=== PATIENT | male | born 1995 | race American Indian/Alaskan Native ===

== ENCOUNTER 2019-03-17 23:21 | Emergency (ER) | payer BC, OTHER ==
[2019-03-17 23:28] VITALS: BP 148/77
--- NOTE | 2019-03-17 23:47 | EDM.PDOC ---
ED HPI GENERAL MEDICAL PROBLEM - General Stated Complaint: CHEST PAIN Time Seen by Provider: 03/17/19 23:38 Source of Information: Reports: Patient History Limitations: Reports: No Limitations - History of Present Illness INITIAL COMMENTS - FREE TEXT/NARRATIVE: This 23 yo male patient reports to the ED with chest pain that started 1 hour ago. The patient reports his symptoms started as sharp pains in the middle of his chest. The patient reports he has been worried about his girlfriend moving to [place] with his child. The patient reports he has not eaten since Saturday and has not been able to sleep since that day either. The patient did contact the [facility] [place] today and has an appointment for tomorrow at noon. Onset Date: 03/17/19 Onset Time: 22:00 Duration: Constant, Improving Location: Reports: Chest Quality: Reports: Ache, Sharp Severity: Moderate Improves with: Reports: None Worsens with: Reports: None Context: Reports: Other Associated Symptoms: Reports: No Other Symptoms Mid-Sternal Chest Pain Score (Numeric/FACES): 4 - Related Data Allergies Allergy/AdvReac Type Severity Reaction Status Date / Time amoxicillin [Amoxicillin] AdvReac Mild Rash Verified 03/17/19 23:27 Home Meds: Home Meds . [No Known Home Meds] 04/02/14 [History] Past Medical History - Past Health History Medical/Surgical History: Denies Medical/Surgical History Respiratory History: Reports: Asthma Endocrine/Metabolic History: Reports: Obesity/BMI 30+ Social & Family History - Tobacco Use Smoking Status *Q: Never Smoker Second Hand Smoke Exposure: No - Recreational Drug Use Recreational Drug Use: No ED ROS GENERAL - Review of Systems Review Of Systems: ROS reveals no pertinent complaints other than HPI. ED EXAM, GENERAL - Physical Exam Exam: See Below Exam Limited By: No Limitations General Appearance: Alert, WD/WN, Moderate Distress, Obese Eye Exam: Bilateral Eye: EOMI, Normal Inspection, PERRL Ears: Normal External Exam, Normal Canal, Hearing Grossly Normal, Normal TMs Nose: Normal Inspection, Normal Mucosa, No Blood Throat/Mouth: Normal Inspection, Normal Lips, Normal Teeth, Normal Gums, Normal Oropharynx, Normal Voice, No Airway Compromise Head: Atraumatic, Normocephalic Neck: Normal Inspection, Supple, Non-Tender, Full Range of Motion Respiratory/Chest: No Respiratory Distress, Lungs Clear, Normal Breath Sounds, No Accessory Muscle Use, Chest Non-Tender Cardiovascular: Normal Peripheral Pulses, Regular Rate, Rhythm, No Edema, No Gallop, No JVD, No Murmur, No Rub GI/Abdominal: Normal Bowel Sounds, Soft, Non-Tender, No Organomegaly, No Distention, No Abnormal Bruit, No Mass (Male) Exam: Deferred Rectal (Males) Exam: Deferred Back Exam: Normal Inspection, Full Range of Motion, NT Extremities: Normal Inspection, Normal Range of Motion, Non-Tender, Normal Capillary Refill, No Pedal Edema Neurological: Alert, Oriented, CN II-XII Intact, Normal Cognition, Normal Gait, Normal Reflexes, No Motor/Sensory Deficits Psychiatric: Depressed Mood, Flat Affect Skin Exam: Warm, Dry, Intact, Normal Color, No Rash Lymphatic: No Adenopathy Course - Vital Signs Last Recorded V/S: Last Vital Signs Temp 36.4 C 03/17/19 23:24 Pulse 101 H 03/17/19 23:24 Resp 20 03/17/19 23:24 BP 148/77 H 03/17/19 23:24 Pulse Ox 100 03/17/19 23:24 - Orders/Labs/Meds Orders: Active Orders 24 hr Category Date Time Status EKG Documentation Completion [RC] URGENT Care 03/17/19 23:26 Ordered Chest 1V Frontal [CR] Urgent Exams 03/17/19 23:26 Ordered Labs: Laboratory Tests 03/17/19 03/17/19 03/17/19 Range/Units 23:38 23:38 23:38 WBC 14.5 H (5.0-10.0) 10^3/uL RBC 5.16 (4.6-6.2) 10^6/uL Hgb 14.2 (14.0-18.0) g/dL Hct 41.3 (40.0-54.0) % MCV 80.0 (80-100) fL MCH 27.5 (27.0-34.0) pg MCHC 34.4 (33.0-35.0) g/dL Plt Count 398 (150-450) 10^3/uL Neut % (Auto) 76.0 H (42.2-75.2) % Lymph % (Auto) 14.4 L (20.5-50.1) % [place] % (Auto) 8.8 H (2-8) % Eos % (Auto) 0.5 L (1.0-3.0) % Baso % (Auto) 0.3 (0.0-1.0) % Sodium 137 (135-145) mmol/L Potassium 3.8 (3.6-5.0) mmol/L Chloride 101 (101-111) mmol/L Carbon Dioxide 26.0 (21.0-31.0) mmol/L Anion Gap 13.8 BUN 13 (7-18) mg/dL Creatinine 0.7 (0.6-1.3) mg/dL Est Cr Clr Drug Dosing 172.36 mL/min Estimated GFR (MDRD) > 60 BUN/Creatinine Ratio 18.57 Glucose 97 (74-105) mg/dL Calcium 9.1 (8.4-10.2) mg/dl Total Bilirubin 1.1 H (0.2-1.0) mg/dL AST 19 (10-42) IU/L ALT 28 (10-60) IU/L Alkaline Phosphatase 71 (42-121) IU/L Troponin I < 0.02 (0.00-0.02) ng/ml Total Protein 8.3 H (6.7-8.2) g/dl Albumin 4.4 (3.2-5.5) g/dl Globulin 3.9 Albumin/Globulin Ratio 1.13 Salicylates < 4 mg/dL Acetaminophen < 10 ug/mL Ethyl Alcohol < 5 mg/dL Meds: Medications Discontinued Medications Generic Name Dose Route Start Last Admin Trade Name Freq PRN Reason Stop Dose Admin Lorazepam 0.5 mg 03/18/19 00:12 Ativan PO 03/18/19 00:13 ONETIME ONE Departure - Departure Time of Disposition: 00:14 Disposition: Home, Self-Care 01 Condition: Fair Clinical Impression: Nonspecific chest pain, Panic attack Instructions: Nonspecific Chest Pain, [id number], Panic Attack, [id number]-[id number] Forms: ED Department Discharge Care Plan Goals: The patient and his mother were advised of the examination, lab, EKG and x-ray results during the visit. The patient was given a oral dose of Ativan while in the ED. The patient was encouraged to follow-up with the [facility] tomorrow as scheduled. If the patient has any additional symptoms or concerns, the patient should either return to the emergency department or visit his primary care facility. - My Orders Last 24 Hours: My Active Orders 03/17/19 23:26 EKG Documentation Completion [RC] URGENT Chest 1V Frontal [CR] Urgent - Assessment/Plan Last 24 Hours: My Active Orders 03/17/19 23:26 EKG Documentation Completion [RC] URGENT Chest 1V Frontal [CR] Urgent
[2019-03-18 00:05] LABS: ANION GAP 13.8; CHLORIDE,CL 101 mmol/L (101-111); SODIUM,NA 137 mmol/L (135-145)
[2019-03-18 00:06] LABS: ACETAMINOPHEN < 10 ug/mL
[2019-03-18] MEDS ORDERED: LORazepam 0.5 MG Tab PO ONE (00:12)
== END 2019-03-18 00:20 | disposition home or self-care (01) ==
LOC: DL.ED 23:21
DX: R07.89 Other chest pain (principal); F41.0 Panic disorder [episodic paroxysmal anxiety]; E66.9 Obesity, unspecified; Z68.30 Body mass index [BMI] 30.0-30.9, adult; Z88.1 Allergy status to other antibiotic agents
CPT/HCPCS: 36415; 71045; 80053; 80320; 80329; 84484; 85025; 93005; 99285; A9270; G0480

== ENCOUNTER 2020-10-21 20:33 | Emergency (ER) | payer BC, OTHER ==
[2020-10-21 20:53] VITALS: BP 158/94; PULSE 109
--- NOTE | 2020-10-21 21:27 | EDM.PDOC ---
ED HPI GENERAL MEDICAL PROBLEM - General Chief Complaint: Abdominal Pain Stated Complaint: RIGHT SIDE OF ABDOMINAL PAIN Time Seen by Provider: 10/21/20 21:08 Source of Information: Reports: Patient, RN, RN Notes Reviewed, Significant Other History Limitations: Reports: No Limitations - History of Present Illness INITIAL COMMENTS - FREE TEXT/NARRATIVE: Patient presents to the ED via personal vehicle with complaints of RUQ abdominal pain. The patient states the pain began early this morning and has progressively worsened in this time. He notes the pain waxes and wanes but is the worst following a cough or sneeze. The patient states he has experienced similar pain with previous URIs, but felt the pain became too great about one hour prior to presentation following a "...big sneeze." He states the pain is localized to the right upper quadrant and characterizes it as sharp in nature. He denies fever, shaking chills, palpitations, vomiting, constipation, diarrhea, dysuria, or hematuria. He does attest to dry cough, post-nasal drip, sore throat, and nausea when he experiences the abdominal pain. He denies a history of COVID and has not received any COVID vaccinations. The patient states his last meal was [employer], shortly before the pain became too great. Right Upper Abdomen Pain Score (Numeric/FACES): 8 - Related Data Allergies Allergy/AdvReac Type Severity Reaction Status Date / Time amoxicillin [Amoxicillin] AdvReac Mild Rash Verified 10/21/20 20:46 Home Meds: Home Meds . [No Known Home Meds] 04/02/14 [History] Past Medical History - Past Health History Medical/Surgical History: Denies Medical/Surgical History Respiratory History: Reports: Asthma Endocrine/Metabolic History: Reports: Obesity/BMI 30+ Social & Family History - Tobacco Use Tobacco Use Status *Q: Never Tobacco User Second Hand Smoke Exposure: No - Caffeine Use Caffeine Use: Reports: Coffee, Energy Drinks, Soda - Recreational Drug Use Recreational Drug Use: No ED ROS GENERAL - Review of Systems Review Of Systems: Comprehensive ROS is negative, except as noted in HPI. ED EXAM, GI/ABD - Physical Exam Exam: See Below Exam Limited By: No Limitations General Appearance: Alert, No Apparent Distress Eyes: Bilateral: Normal Appearance, EOMI Nose: Clear Rhinorrhea Throat/Mouth: Normal Inspection, Normal Voice, No Airway Compromise Head: Atraumatic, Normocephalic Neck: Normal Inspection, Supple, Non-Tender, Full Range of Motion Respiratory/Chest: Lungs Clear, No Accessory Muscle Use, Chest Non-Tender, Decreased Breath Sounds Cardiovascular: Normal Peripheral Pulses, Regular Rate, Rhythm, No Edema, No Gallop, No JVD, No Murmur GI/Abdominal Exam: Normal Bowel Sounds, Soft, Non-Tender (No tenderness to palpation of the abdomen; Patient verbalized pain with coughing during examination), No Distention, No Abnormal Bruit, No Mass, Pelvis Stable. No: Guarding, Rigid, Rebound (Male) Exam: Deferred Rectal (Males) Exam: Deferred Back Exam: Normal Inspection, Full Range of Motion Extremities: Normal Inspection, Normal Range of Motion, Non-Tender, Normal Capillary Refill, No Pedal Edema Neurological: Alert, Oriented, CN II-XII Intact, Normal Cognition, Normal Gait, No Motor/Sensory Deficits Psychiatric: Normal Affect, Normal Mood Skin Exam: Warm, Dry, Intact, Normal Color, No Rash Course - Vital Signs Last Recorded V/S: Last Vital Signs Temp 97.3 F 10/21/20 20:47 Pulse 109 H 10/21/20 20:47 Resp 16 10/21/20 20:47 BP 158/94 H 10/21/20 20:47 Pulse Ox 99 10/21/20 20:47 - Orders/Labs/Meds Labs: Laboratory Tests 10/21/20 10/21/20 10/21/20 Range/Units 20:44 21:49 21:49 WBC 10.7 H (5.0-10.0) 10^3/uL RBC 5.29 (4.6-6.2) 10^6/uL Hgb 14.3 (14.0-18.0) g/dL Hct 43.1 (40.0-54.0) % MCV 81.5 (80-100) fL MCH 27.0 (27.0-34.0) pg MCHC 33.2 (33.0-35.0) g/dL Plt Count 416 (150-450) 10^3/uL Neut % (Auto) 70.1 (42.2-75.2) % Lymph % (Auto) 19.6 L (20.5-50.1) % [place] % (Auto) 6.7 (2-8) % Eos % (Auto) 2.9 (1.0-3.0) % Baso % (Auto) 0.7 (0.0-1.0) % Sodium 140 (136-145) mmol/L Potassium 4.0 (3.5-5.1) mmol/L Chloride 102 (98-107) mmol/L Carbon Dioxide 28 (21-32) mmol/L Anion Gap 14.0 H (7-13) mEq/L BUN 13 (7-18) mg/dL Creatinine 0.85 (0.70-1.30) mg/dL Est Cr Clr Drug Dosing 140.75 mL/min Estimated GFR (MDRD) > 60 BUN/Creatinine Ratio 15.3 (No establ ref range) Glucose 183 H (70-99) mg/dL Lactic Acid (0.4-2.0) mmol/L Calcium 8.5 (8.5-10.1) mg/dL Total Bilirubin 0.3 (0.2-1.0) mg/dL AST 23 (15-37) U/L ALT 60 (16-63) U/L Alkaline Phosphatase 92 (46-116) U/L C-Reactive Protein 3.9 H (0.0-0.9) mg/dL Total Protein 7.9 (6.4-8.2) g/dL Albumin 3.7 (3.4-5.0) g/dL Globulin 4.2 Albumin/Globulin Ratio 0.9 Amylase (25-115) U/L Lipase (73-393) U/L Ethyl Alcohol < 3 (0) mg/dL SARS-CoV-2 RNA (LESLI) Negative (NEGATIVE) 10/21/20 10/21/20 Range/Units 21:49 21:49 WBC (5.0-10.0) 10^3/uL RBC (4.6-6.2) 10^6/uL Hgb (14.0-18.0) g/dL Hct (40.0-54.0) % MCV (80-100) fL MCH (27.0-34.0) pg MCHC (33.0-35.0) g/dL Plt Count (150-450) 10^3/uL Neut % (Auto) (42.2-75.2) % Lymph % (Auto) (20.5-50.1) % [place] % (Auto) (2-8) % Eos % (Auto) (1.0-3.0) % Baso % (Auto) (0.0-1.0) % Sodium (136-145) mmol/L Potassium (3.5-5.1) mmol/L Chloride (98-107) mmol/L Carbon Dioxide (21-32) mmol/L Anion Gap (7-13) mEq/L BUN (7-18) mg/dL Creatinine (0.70-1.30) mg/dL Est Cr Clr Drug Dosing mL/min Estimated GFR (MDRD) BUN/Creatinine Ratio (No establ ref range) Glucose (70-99) mg/dL Lactic Acid 1.4 (0.4-2.0) mmol/L Calcium (8.5-10.1) mg/dL Total Bilirubin (0.2-1.0) mg/dL AST (15-37) U/L ALT (16-63) U/L Alkaline Phosphatase (46-116) U/L C-Reactive Protein (0.0-0.9) mg/dL Total Protein (6.4-8.2) g/dL Albumin (3.4-5.0) g/dL Globulin Albumin/Globulin Ratio Amylase 24 L (25-115) U/L Lipase 91 (73-393) U/L Ethyl Alcohol (0) mg/dL SARS-CoV-2 RNA (LESLI) (NEGATIVE) - Radiology Interpretation Free Text/Narrative:: [facility] Final Radiology Report Call: [phone] assistance Online chat: [email or web address] Name: RACHEL IQBAL Age: 24Years M Date: 10/21/2020 SSN: -- : 1995 Study: CR CHEST 2V Requesting Physician: Candie Gray Images: 2 Addl Studies: Provided Clinical History: Right rib pain with cough Contrast: Contrast Medium: Contrast Amount: Contrast Method: CONFIDENTIALITY STATEMENT This report is intended only for use by the referring physician, and only in acc ordance with law. If you received this in error, call [phone]. Page 1 of 1 PROCEDURE INFORMATION: Exam: XR Chest Exam date and time: 10/21/2020 10:50 PM Age: 24 years old Clinical indication: Cough; Additional info: Right rib pain with cough TECHNIQUE: Imaging protocol: XR of the chest. Views: 2 views. COMPARISON: CR Chest 1V Frontal 03/17/2019 11:33 PM FINDINGS: Lungs: Unremarkable. No consolidation. Pleural spaces: Unremarkable. No pleural effusion. No pneumothorax. Heart/Mediastinum: Unremarkable. No cardiomegaly. Bones/joints: Unremarkable. IMPRESSION: No acute findings. Thank you for allowing us to participate in the care of your patient. Dictated and Authenticated by: Leo Ferris MD 10/21/2020 11:23 PM Central Time ([place] & [place]) [facility] Final Radiology Report Call: [phone] assistance Online chat: [email or web address] Name: RACHEL IQBAL Age: 24Years M Date: 10/21/2020 SSN: -- : [id number] Study: CR ABDOMEN 2V AP FLAT UPRIGHT Requesting Physician: Candie Gray Images: 4 Addl Studies: Provided Clinical History: RUQ pain with cough Contrast: Contrast Medium: Contrast Amount: Contrast Method: CONFIDENTIALITY STATEMENT This report is intended only for use by the referring physician, and only in accordance with law. If you received this in error, call [phone]. Page 1 of 1 PROCEDURE INFORMATION: Exam: XR Abdomen Exam date and time: 10/21/2020 10:55 PM Age: 24 years old Clinical indication: Other: Slight wbc and crp elevation; Additional info: Ruq pain with cough TECHNIQUE: Imaging protocol: XR of the abdomen. Views: 2 Views. Upright and supine views. COMPARISON: No relevant prior studies available. FINDINGS: Gastrointestinal tract: Normal. No bowel dilation. Intraperitoneal space: Normal. No free air. Bones/joints: Unremarkable for age. IMPRESSION: No acute findings. Thank you for allowing us to participate in the care of your patient. Dictated and Authenticated by: Leo Ferris MD 10/21/2020 11:23 PM Central Time ([place] & [place]) - Re-Assessments/Exams Free Text/Narrative Re-Assessment/Exam: 10/21/20 Xray chest unremarkable for acute processes; no rib fracture or consolidation. Xray of abdomen unremarkable for acute processes; large volume of stool appreciated in the colon. COVID and Influenza negative. CBC unremarkable for acute processes; no evidence of infection or anemia. CMP appropriate; kidney function, liver function, and electrolytes are normal. Amylase and Lipase WNL. Slight CRP elevation noted. Findings of examination, lab work, and imaging reviewed with patient. Discussed etiology of constipation vs pleurisy r/t URI for RUQ pain. Discussed supportive cares as well as red flag signs and symptoms which would warrant reevaluation. Patient verbalized understanding and agreement with the plan of care. Departure - Departure Time of Disposition: 23:26 Disposition: Home, Self-Care 01 Condition: Good Clinical Impression: Pleurisy, Hyperglycemia URI (upper respiratory infection) Qualifiers: URI type: unspecified viral URI Qualified Code(s): J06.9 - Acute upper respiratory infection, unspecified Constipation Qualifiers: Constipation type: unspecified constipation type Qualified Code(s): K59.00 - Constipation, unspecified - Discharge Information *PRESCRIPTION DRUG MONITORING PROGRAM REVIEWED*: Not Applicable *COPY OF PRESCRIPTION DRUG MONITORING REPORT IN PATIENT TINO: Not Applicable Instructions: Constipation, Adult, Upper Respiratory Infection, Adult, [id number], Pleurisy, [id number] Forms: ED Department Discharge Additional Instructions: 1.) You may take MiraLAX to help alleviate symptoms of constipation as this may be attributing to the pain in you abdomen with coughing. 2.) Continue with supportive cares for your upper respiratory infection. 3.) Drink plenty of water to stay hydrated. 4.) Increase your dietary fiber intake, including fruits, vegetables, and whole grains. 5.) Follow up with your primary care provider regarding today's visit, including your elevated blood sugar level. Sepsis Event Note (ED) - Evaluation Sepsis Screening Result: No Definite Risk
[2020-10-21 22:31] LABS: CHLORIDE,CL 102 mmol/L (98-107); SODIUM,NA 140 mmol/L (136-145)
--- NOTE | 2020-10-21 23:23 | CR ---
PROCEDURE INFORMATION: Exam: XR Chest Exam date and time: 10/21/2020 10:50 PM Age: 24 years old Clinical indication: Cough; Additional info: Right rib pain with cough TECHNIQUE: Imaging protocol: XR of the chest. Views: 2 views. COMPARISON: CR Chest 1V Frontal 03/17/2019 11:33 PM FINDINGS: Lungs: Unremarkable. No consolidation. Pleural spaces: Unremarkable. No pleural effusion. No pneumothorax. Heart/Mediastinum: Unremarkable. No cardiomegaly. Bones/joints: Unremarkable. IMPRESSION: No acute findings.
--- NOTE | 2020-10-21 23:24 | CR ---
PROCEDURE INFORMATION: Exam: XR Abdomen Exam date and time: 10/21/2020 10:55 PM Age: 24 years old Clinical indication: Other: Slight wbc and crp elevation; Additional info: Ruq pain with cough TECHNIQUE: Imaging protocol: XR of the abdomen. Views: 2 Views. Upright and supine views. COMPARISON: No relevant prior studies available. FINDINGS: Gastrointestinal tract: Normal. No bowel dilation. Intraperitoneal space: Normal. No free air. Bones/joints: Unremarkable for age. IMPRESSION: No acute findings.
== END 2020-10-21 23:34 | disposition home or self-care (01) ==
LOC: DL.ED 20:33
DX: K59.00 Constipation, unspecified (principal); J06.9 Acute upper respiratory infection, unspecified; R09.1 Pleurisy; R73.9 Hyperglycemia, unspecified; J45.909 Unspecified asthma, uncomplicated; E66.9 Obesity, unspecified; Z88.0 Allergy status to penicillin; Z20.822 Contact with and (suspected) exposure to COVID-19
CPT/HCPCS: 36415; 71046; 74019; 80053; 80307; 82150; 83605; 83690; 85025; 86140; 99284; 99284-25; U0002

== ENCOUNTER 2022-06-15 15:38 | Emergency (ER) | payer OTHER ==
[2022-06-15] MEDS ORDERED: Sodium Chloride 0.9% 10 ML Syringe FLUSH PRN (15:40)
[2022-06-15 16:48] LABS: ANION GAP 14.1 mEq/L (7-13); CHLORIDE,CL 96 mmol/L (98-107); SODIUM,NA 133 mmol/L (136-145)
[2022-06-15 16:57] LABS: ESTIMATED GFR 123 mL/min (>=60)
[2022-06-15] MEDS ORDERED: Insulin Regular, Human 100 Units/ML 3 ML Vial SUBCUT ONE (16:59)
[2022-06-15] MEDS ORDERED: Insulin Regular, Human 100 Units/ML 3 ML Vial IV ONE (16:59)
[2022-06-15 17:42] VITALS: BP 142/109; PULSE 107
== END 2022-06-15 18:21 | disposition home or self-care (01) ==
LOC: DL.ED 15:38
DX: U07.1 COVID-19 (principal); R07.81 Pleurodynia; E11.65 Type 2 diabetes mellitus with hyperglycemia; E66.9 Obesity, unspecified; Z68.43 Body mass index [BMI] 50.0-59.9, adult; Z88.0 Allergy status to penicillin
CPT/HCPCS: 36415; 71045; 80053; 82009; 82947; 83605; 84484; 85025; 85379; 85610; 93005; 99285; J1815; J3490

== ENCOUNTER 2022-10-21 18:51 | Emergency (ER) | payer BC, OTHER ==
[2022-10-21 19:18] VITALS: PULSE 95
[2022-10-21 19:24] VITALS: BP 194/119
[2022-10-21] MEDS: cefTRIAXone 1 GM, Lidocaine 1% 2.1 ML IM ONE ×2 (20:30)
[2022-10-21] MEDS: Tetracaine HCl/PF 0.5% 4 ML Bottle EYERT ONE (20:44)
== END 2022-10-21 20:45 | disposition home or self-care (01) ==
LOC: DL.ED 18:51
DX: H66.001 Acute suppurative otitis media without spontaneous rupture of ear drum, right ear (principal); J45.909 Unspecified asthma, uncomplicated; E66.9 Obesity, unspecified; Z68.43 Body mass index [BMI] 50.0-59.9, adult; Z88.0 Allergy status to penicillin; Z86.16 Personal history of COVID-19
CPT/HCPCS: 96372; 99282; J0696; J3490

== ENCOUNTER 2024-11-22 09:41 | Emergency (ER) | payer BC ==
[2024-11-22] MEDS ORDERED: Lidocaine 1% with EPINEPHrine 1:100,000 20 ML MDV INJECT ONE (10:09)
[2024-11-22 10:24] VITALS: BP 160/86; PULSE 97
[2024-11-22] MEDS: Take Home: Acetaminophen/HYDROcodone 325-5 MG, 5 Tab Pack PO ONE (10:43)
[2024-11-22] MEDS: Take Home: Sulfamethoxazole/Trimethoprim 800-160 MG Tab, 6 Tab Pack PO ONE (10:43)
== END 2024-11-22 10:30 | disposition home or self-care (01) ==
LOC: DL.ED 09:41
DX: K61.1 Rectal abscess (principal); Z88.0 Allergy status to penicillin; Z79.899 Other long term (current) drug therapy; Z86.16 Personal history of COVID-19
CPT/HCPCS: 10060; 46040; 99282; 99283; A9270